=== PATIENT | male | born 1960 | race Caucasian/White ===

== ENCOUNTER 2018-04-05 08:28 | Inpatient (IN) | payer BC ==
[~2018-04-05] VITALS: Ht 177.8 cm; Wt 184.0 kg
[~2018-04-05 08:28] MED LIST: ASPIRIN 32325 MG/TAB PO; DEMADEX10 MG PO; LASIX 20MG TABL20 MG PO; MICRO-K 1010 MEQ PO; SYNTHROID0.125 MG/T PO
[2018-04-10] VITALS (12 sets, daily range): BP systolic 89–141; BP diastolic 54–104; PULSE 40–100; TEMP 97.4–98
[2018-04-10] MEDS ORDERED: TOPROL XL 50MG50 MG PO (07:35)
[2018-04-10] MEDS ORDERED: COLACE 100100 MG/CAP PO (07:37)
[2018-04-10] MEDS ORDERED: ASPIRIN 32325 MG/TAB PO (07:37)
[2018-04-10] MEDS ORDERED: VALIUM 10MG10 MG/TAB PO (07:38)
[2018-04-10] MEDS ORDERED: ALLEGRA ALLERG180 MG PO (07:39)
[2018-04-10] MEDS ORDERED: DEPO-TESTOS200 MG/M1 IM (07:42)
[2018-04-10] MEDS ORDERED: CLARISPRAY9.9 ML NS (07:43)
[2018-04-10] MEDS ORDERED: VENTOLIN0.09 MG IH (07:44)
[2018-04-11] VITALS (7 sets, daily range): BP systolic 103–122; BP diastolic 49–98; PULSE 77–146; TEMP 97.7–98.7
[2018-04-11 06:17] LABS: HEMATOCRIT 48.5 % (42.0-52.0); HEMOGLOBIN 15.6 g/dl (13.5-18.0)
[2018-04-11 08:43] LABS: CALCIUM 8.2 mg/dL (8.4-10.2); CREATININE, serum 0.97 mg/dL (0.66-1.25); POTASSIUM 5.1 mmol/L (3.4-5.0)
[2018-04-12 00:44] VITALS: BP 89/51; BP 99/51; PULSE 81; PULSE 86; TEMP 97.6
[2018-04-12 04:11] VITALS: BP 126/70; PULSE 101; TEMP 98.4
[2018-04-12 06:25] LABS: HEMATOCRIT 45.3 % (42.0-52.0); HEMOGLOBIN 14.5 g/dl (13.5-18.0)
[2018-04-12 07:18] VITALS: BP 112/75; PULSE 59; TEMP 97.9
[2018-04-12 12:40] VITALS: BP 114/77; PULSE 108; TEMP 97.9
[2018-04-12] MEDS ORDERED: TYLENOL 500MG500 MG PO (14:23)
[2018-04-12] MEDS ORDERED: ROXICODONE 55 MG/TAB PO (14:23)
[2018-04-12 16:22] VITALS: BP 92/60; PULSE 109; TEMP 98.2
[2018-04-12 20:37] VITALS: BP 125/65; PULSE 110; TEMP 98.4
[2018-04-13] VITALS (7 sets, daily range): BP systolic 100–156; BP diastolic 47–89; PULSE 64–101; TEMP 97.7–98.4
[2018-04-13 08:35] LABS: HEMATOCRIT 45.8 % (42.0-52.0); HEMOGLOBIN 14.8 g/dl (13.5-18.0)
[2018-04-14 04:32] VITALS: BP 134/93; PULSE 95; TEMP 97.4
[2018-04-14 08:09] VITALS: BP 115/61; PULSE 56; TEMP 97.6
[2018-04-14 11:14] VITALS: BP 111/73; PULSE 92; TEMP 97.6
[2018-04-14 16:08] VITALS: BP 109/69; PULSE 99; TEMP 97.5
[2018-04-14 20:30] VITALS: BP 112/68; PULSE 86; TEMP 97.7
[2018-04-15 00:31] VITALS: BP 128/77; PULSE 88; TEMP 97.9
[2018-04-15 04:30] VITALS: BP 117/75; PULSE 76; TEMP 97.7
[2018-04-15 07:51] VITALS: BP 128/63; PULSE 95; TEMP 97.6
[2018-04-15] MEDS ORDERED: XARELTO10 MG PO ×2 (11:00→11:01)
[2018-04-15 11:26] VITALS: BP 128/63; PULSE 95; TEMP 97.6
[2018-04-15 12:05] VITALS: BP 129/78; PULSE 85; TEMP 97.9
== END 2018-04-15 13:20 | DRG 470 ==
LOC: JCC 04-10 06:48
PROVIDERS: Internal Medicine Cardiovascular Disease; Orthopaedic Surgery; Physician Assistant
PROC: 0SRC0J9 Replacement of Right Knee Joint with Synthetic Substitute, Cemented, Open Approach (ICD-10-PCS; principal; 2018-04-10 09:45)
DX: M17.11 Unilateral primary osteoarthritis, right knee (principal); Z68.43 Body mass index [BMI] 50.0-59.9, adult; I48.0 Paroxysmal atrial fibrillation; I10 Essential (primary) hypertension; E66.01 Morbid (severe) obesity due to excess calories; E78.5 Hyperlipidemia, unspecified
CPT/HCPCS: A9284; C1713; C1776; J0690; J1100; J1160; J2250; J2370; J2405; J2704; J2765; J3010; J7120

== ENCOUNTER 2018-05-13 06:02 | Day surgery (SDC) | payer BC ==
[~2018-05-13] VITALS: Ht 177.8 cm; Wt 180.0 kg
[~2018-05-13 06:02] MED LIST changes: +ALLEGRA ALLERG180 MG PO; +CLARISPRAY9.9 ML NS; +COLACE 100100 MG/CAP PO; +DEPO-TESTOS200 MG/M1 IM; +ROXICODONE 55 MG/TAB PO; +TOPROL XL 50MG50 MG PO; +TYLENOL 500MG500 MG PO; +VALIUM 10MG10 MG/TAB PO; +VENTOLIN0.09 MG IH; +XARELTO10 MG PO
[2018-05-13] MEDS ORDERED: LANOXIN 0.120.125 MG PO (06:29)
[2018-05-13 07:09] VITALS: BP 97/47; PULSE 84; TEMP 97.9
[2018-05-13 07:12] LABS: INR 1.1 (0.8-3.0); PROTHROMBIN TIME 12.3 SECONDS (9.7-12.8)
[2018-05-13 07:29] LABS: POTASSIUM 4.2 mmol/L (3.4-5.0)
[2018-05-13 08:04] LABS: THYROID STIMULATING HORMONE 3.21 uIU/mL (0.465-4.680)
[2018-05-13 10:17] VITALS: BP 100/77; PULSE 91
[2018-05-13 10:30] VITALS: BP 107/79; PULSE 86
[2018-05-13 10:40] VITALS: BP 108/72; PULSE 77
[2018-05-13 10:55] VITALS: BP 100/43; PULSE 90
== END 2018-05-13 11:53 | disposition home or self-care (01) ==
LOC: COL.CAR 06:02
PROVIDERS: Internal Medicine Cardiovascular Disease
DX: I48.1 Persistent atrial fibrillation (principal); I10 Essential (primary) hypertension; E78.5 Hyperlipidemia, unspecified; E66.01 Morbid (severe) obesity due to excess calories; Z68.43 Body mass index [BMI] 50.0-59.9, adult; E03.9 Hypothyroidism, unspecified; G47.33 Obstructive sleep apnea (adult) (pediatric); Z79.899 Other long term (current) drug therapy; Z79.01 Long term (current) use of anticoagulants; I34.0 Nonrheumatic mitral (valve) insufficiency
CPT/HCPCS: J0330; J2704; J7030

== ENCOUNTER → 2018-09-06 | Outpatient (CLI) | payer BC ==
[~2018-09-06] MED LIST changes: +KLOR-CON M2020 MEQ PO; +LANOXIN 0.120.125 MG PO; +LIPITOR20 MG PO; +VITAMIN B11000 MCG/M IM
== END ==
LOC: COL.CARD 06:30
DX: I48.1 Persistent atrial fibrillation (principal)
CPT/HCPCS: A9500; J2785